=== PATIENT | female | born 1975 | race Caucasian/White ===

== ENCOUNTER 2018-12-17 05:39 | Day surgery (SDC) | payer BC ==
[~2018-12-17 05:39] MED LIST: Buffered Lidocaine 1% SYRIN* 1 ML/SYRINGE INTRADERM ONE
[2018-12-17] MEDS ORDERED: Dexamethasone IV* 4 MG/ML 1 ML (4 MG) IV SLOW PU ONE (06:00)
[2018-12-17] MEDS ORDERED: Famotidine TAB* 20 MG PO ONE (06:00)
[2018-12-17] MEDS ORDERED: Lactated Ringers 1000 ML Bag* 1,000 ML IV SCH (06:00)
[2018-12-17] MEDS ORDERED: ceFAZolin 2 GM in NS PREMIX(*) 2 GM/100 ML BAG IVPB ONE (06:17)
[2018-12-17] MEDS ORDERED: Dexamethasone IV* 4 MG/ML 1 ML (4 MG) ONE (06:17)
[2018-12-17] MEDS ORDERED: Buffered Lidocaine 1% SYRIN* 1 ML/SYRINGE INTRADERM ONE (06:17)
[2018-12-17] MEDS ORDERED: Famotidine TAB* 20 MG ONE (06:17)
[2018-12-17] MEDS ORDERED: EPINEPHRINE 1 MG/ML 1 ML VIAL ONE (06:50)
[2018-12-17] MEDS ORDERED: ROPIVACAINE 5 MG/ML 30 ML BTL (0.5%) ONE (06:50)
[2018-12-17] MEDS ORDERED: methylPREDNISolone ACETATE 80* 80 MG/ML 1 ML VIAL ONE (06:50)
[2018-12-17] MEDS ORDERED: fentaNYL* 50 MCG/ML 5 ML VIAL (250 MCG VIAL) ONE (07:15)
[2018-12-17] MEDS ORDERED: Propofol* 10 MG/ML 20 ML BTL ONE (07:16)
[2018-12-17] MEDS ORDERED: Midazolam* 1 MG/ML 2 ML VIAL (2 MG) ONE (07:16)
[2018-12-17] MEDS ORDERED: Lidocaine 2% PF * 5 ML VIAL ONE (07:16)
[2018-12-17] MEDS ORDERED: Succinylcholine* 20 MG/ML 10 ML VIAL ONE (07:16)
[2018-12-17] MEDS ORDERED: DiMENhydriNATE IV* 50 MG/ML VIAL IV PUSH PRN (07:53)
[2018-12-17] MEDS ORDERED: Acetaminophen TAB* 325 MG PO PRN (07:53)
[2018-12-17] MEDS ORDERED: Naloxone* 0.4 MG/ML 1 ML VIAL IV PRN (07:53)
[2018-12-17] MEDS ORDERED: fentaNYL* 50 MCG/ML 2 ML VIAL (100 MCG VIAL) IV PRN (07:53)
[2018-12-17] MEDS ORDERED: HYDROmorphone INJ1* 1 MG/ML SYRINGE IV PRN (07:53)
[2018-12-17] MEDS ORDERED: oxyCODONE/Acetamin 5/325 MG* TAB PO PRN (07:53)
[2018-12-17] MEDS ORDERED: Ketorolac INJ* 30 MG/ML 1 ML VIAL IV PRN (07:53)
[2018-12-17] MEDS ORDERED: Ondansetron INJ* 2 MG/ML VIAL ONE (08:07)
[2018-12-17] MEDS ORDERED: Levalbuterol HFA INHALER* 1 PUFF MDI ONE (08:41)
[2018-12-17] MEDS ORDERED: Levalbuterol 1.25MG/0.5ML NEB ONE (08:56)
[2018-12-17] MEDS ORDERED: methylPREDNISolone SOD 40 MG* 1 ML VIAL ONE (09:03)
[2018-12-17] MEDS ORDERED: Levalbuterol 1.25MG/0.5ML NEB INH ONE (09:27)
[2018-12-17 10:24] VITALS: BP 117/63
--- NOTE | 2018-12-17 21:35 | OP ---
DATE OF OPERATION: 12/17/18 [facility] DATE OF : 71 ATTENDING SURGEON: Valentine Padilla MD. EDGE CUTTING MACHINE OPERATOR: VIJAYA Milton. Ms. Russell did help throughout the procedure with preparation of the leg, wound retraction, manipulation of the knee, and wound closure. ANESTHESIOLOGIST: Dr. Shah. ANESTHESIA: General. PRE-OP DIAGNOSIS: Left knee medial and lateral meniscal tear, moderate degenerative osteoarthritis. POST-OP DIAGNOSIS: Left knee medial and lateral meniscal tear, severe degenerative osteoarthritis of the patello-femoral and lateral compartments. OPERATIVE PROCEDURE: Left knee arthroscopy with partial medial meniscectomy and partial lateral meniscectomy. COMPLICATIONS: None. ESTIMATED BLOOD LOSS: Less than 45 cc. SPECIMEN: None. BRIEF HISTORY/INDICATION: Ms. Restrepo is a 43-year-old female who was stepping off a chair one month ago and she felt a pop in the back of her knee. She failed conservative treatment and had significant pain. MRI confirmed medial and lateral meniscal tear. Due to continued pain and mechanical symptoms , the patient elected to undergo knee arthroscopy with partial meniscectomy, possible chondroplasty, possible synovectomy. Informed consent was obtained from the patient. She understood the risks of surgery included, but were not limited to, bleeding, infection, damage to nearby structures, continued pain, need for further surgery, retear of the meniscus, nerve palsy, damage to nearby structures, continued progression of arthritis, stroke, heart attack, blood clot , and . She wished to proceed. INTRAOPERATIVE FINDINGS: Intraoperatively, the patient was noted to have grade 3 and 4 Outerbridge cartilage changes in the patellofemoral and lateral compartments. There was exposed subchondral bone and significant cartilage loss. Medial compartment had grade 2 and 3 Outerbridge cartilage changes. The medial meniscus had a radial tear along the body in the red-white zone. The lateral meniscus had a large displaced parrot beak type tear involving the body of posterior horn. This is in the white-red zone. DESCRIPTION OF PROCEDURE: Ms. Restrepo was identified in the preanesthesia unit. Her left lower extremity was marked as the correct operative site. Informed consent was signed and placed in the chart. The patient was taken to the operating room and placed under anesthesia without difficulty. Left lower extremity was prepped and draped in the usual sterile fashion. Preop time-out was made to correctly identify the patient, side, and site. Appropriate perioperative antibiotics were given within 1 hour of incision. A standard lateral 0.5-cm portal incision was made with a 10-blade and carried down to the capsule. Trocar was introduced. As soon as the light and water sources were turned on, there was immediate visualization of the suprapatellar pouch. A tour of the knee joint was performed. Suprapatellar pouch had no obvious abnormalities. Patellofemoral compartment showed exposed subchondral bone along the medial and lateral patellar facet as well as the femoral trochlear groove. These were grade 3 and 4 Outerbridge cartilage changes. The medial compartment showed a radial tear in the body of the medial meniscus. Some grade 2 and 3 Outerbridge cartilage changes. ACL and PCL appeared to be intact. The knee was placed in the [id number] position. Lateral compartment showed a large parrot beak type tear with displacement to the joint space. There were grade 3 and 4 Outerbridge cartilage changes of the lateral compartment with exposed subchondral bone along the lateral femoral condyle and tibial plateau. Lateral gutter and medial gutter showed no loose bodies or plica. Under direct visualization, a medial portal incision was made. A probe was introduced. There were no additional findings noted. Radiofrequency ablation wand and shaver were used to remove some anterior synovitis. Visualization was improved. Shaver and straight biter were used to perform partial medial meniscectomy in the white-red zone. A smooth border of the medial meniscus was obtained. Further probing of the meniscus showed no additional tears to remove. The knee was placed in the [id number] position. There was a large parrot beak type tear displaced into the joint space in the white-red zone. Straight biter and shaver were used to perform partial lateral meniscectomy in the white-red zone. A smooth border of the lateral meniscus was obtained. Radiofrequency ablation wand was used to further smooth the edge of the lateral meniscus. Further probing of the lateral meniscus showed no additional tears. The knee was copiously irrigated with sterile saline. All instruments were removed. Incisions were closed using interrupted 3-0 nylon suture. Intraarticular injection of 80 mg Depo-Medrol and 6 cc of 0.5% ropivacaine was placed in the knee joint. The patient's incisions were covered with Xeroform, 4x4s, and Webril. Rodriguez wrap and cold pack were placed over this. The patient's anesthesia was reversed without difficulty. She was taken to the PACU in stable condition. Intended weightbearing will be weightbearing as tolerated. Intended DVT prophylaxis will be aspirin. She will follow up in 2 weeks' time for suture removal. [id number]/[facility] #: [id number] JIMMY
== END 2018-12-17 10:48 | disposition home or self-care (01) ==
LOC: OR 05:39
PROVIDERS: ATTEND Orthopaedic Surgery Adult Reconstructive Orthopaedic Surgery
DX: S83.242A Other tear of medial meniscus, current injury, left knee, initial encounter (principal); S83.282A Other tear of lateral meniscus, current injury, left knee, initial encounter; X50.0XXA Overexertion from strenuous movement or load, initial encounter; Y92.9 Unspecified place or not applicable; M17.12 Unilateral primary osteoarthritis, left knee; J45.909 Unspecified asthma, uncomplicated; E03.9 Hypothyroidism, unspecified; M19.90 Unspecified osteoarthritis, unspecified site
CPT/HCPCS: 81025; A9270-GY; J0330; J0690; J1040; J1100; J2250; J2405; J2704; J2795; J2920; J3010

== ENCOUNTER 2020-08-25 07:30 | Inpatient (IN) ==
[~2020-08-25 07:30] MED LIST changes: +Buffered Lidocaine 1% SYRIN 1 ml INTRADERM ONE; -Buffered Lidocaine 1% SYRIN* 1 ML/SYRINGE INTRADERM ONE; +Famotidine IV 10 MG/ML 2 ml VIAL (20 mg) IV ONE; +Lactated Ringers 1000 ml BAG 1,000 ML IV SCH
[2020-08-25] MEDS ORDERED: Rocuronium 50 mg VIAL 10 mg/ml 5 ml VIAL (50 mg) ONE ×2 (08:55→09:46)
[2020-08-25] MEDS ORDERED: HYDROmorphone 1 MG/1 ML SYRINGE ONE (08:55)
[2020-08-25] MEDS ORDERED: Ondansetron 4 mg VIAL 2 MG/ML 2 ml VIAL ONE (08:56)
[2020-08-25] MEDS ORDERED: Glycopyrrolate IV 0.2 MG/ML 1 ML VIAL ONE (08:56)
[2020-08-25] MEDS ORDERED: Propofol 10 MG/ML 20 ML BTL ONE ×2 (08:56→10:22)
[2020-08-25] MEDS ORDERED: Lidocaine 2% PF 5 ML VIAL ONE (08:56)
[2020-08-25] MEDS ORDERED: Midazolam 2 mg/2 ml VIAL 1 mg/ml 2 ml VIAL (2 mg) ONE (08:56)
[2020-08-25] MEDS ORDERED: Dexamethasone IV 4 MG/ML VIAL 1 ml VIAL ONE (08:56)
[2020-08-25] MEDS ORDERED: fentaNYL 100 mcg/2 ml 50 MCG/ML VIAL ONE (09:22)
[2020-08-25] MEDS ORDERED: ceFAZolin 1 GM ADVAN 1 GM ADDV.VIAL IVPB ONE (09:23)
[2020-08-25] MEDS ORDERED: Famotidine IV 10 MG/ML 2 ml VIAL (20 mg) ONE (09:23)
[2020-08-25] MEDS ORDERED: Buffered Lidocaine 1% SYRIN 1 ml INTRADERM ONE (09:23)
[2020-08-25] MEDS ORDERED: ceFAZolin 2 GM PREMIX 2 GM/50 ML BAG ONE (09:23)
[2020-08-25] MEDS ORDERED: Heparin 5000 UNITS/ML 1 mL VIAL ONE (09:23)
[2020-08-25] MEDS ORDERED: Methylene Blue 0.5 % 50 MG/10 ML AMP IV ONE (09:43)
[2020-08-25] MEDS ORDERED: EPHEDrine (Pressors) 50 MG/ML VIAL ONE (10:41)
[2020-08-25] MEDS ORDERED: Phenylephrine 40 mcg/mL 10mL (400mcg) SYRINGE ONE (10:42)
[2020-08-25] MEDS ORDERED: Naloxone 0.4 mg VIAL 0.4 mg/ml 1 ml VIAL IV PRN (11:25)
[2020-08-25] MEDS ORDERED: DiMENhydriNATE IV 50 mg/ml 1 ml VIAL IV PUSH PRN (11:25)
[2020-08-25] MEDS ORDERED: Ondansetron 4 mg VIAL 2 MG/ML 2 ml VIAL IV PRN ×2 (11:25→12:51)
[2020-08-25] MEDS ORDERED: fentaNYL 100 mcg/2 ml 50 MCG/ML VIAL IV PRN (11:25)
[2020-08-25] MEDS ORDERED: Levalbuterol 1.25MG/0.5ML NEB.SOL INH PRN (11:25)
[2020-08-25] MEDS ORDERED: Acetaminophen IV 1 GM/100ML 100 ML ONE (11:32)
[2020-08-25] MEDS ORDERED: Levalbuterol HFA INHALER MDI ONE (12:37)
[2020-08-25] MEDS ORDERED: diPHENhydraMINE IV 50 MG/ML 1 ml VIAL (BENADRYL) SLOW PUSH PRN (12:51)
[2020-08-25] MEDS ORDERED: HYDROmorphone 0.5 MG/0.5 ML SYRINGE IV SLOW PU PRN (12:51)
[2020-08-25] MEDS ORDERED: HYDROmorphone 1 MG/1 ML SYRINGE IV SLOW PU PRN (12:51)
[2020-08-25] MEDS ORDERED: Albuterol HFA INHALER 8 gm MDI INH PRN (14:30)
[2020-08-25] MEDS: Heparin 5000 UNITS/ML 1 mL VIAL SUBCUT SCH ×2 (14:48→21:20)
[2020-08-25] MEDS: Lactated Ringers 1000 ml BAG 1,000 ML IV SCH (21:19)
[2020-08-25] MEDS: Famotidine IV 10 MG/ML 2 ml VIAL (20 mg) IV SLOW PU SCH (21:20)
[2020-08-26] MEDS: Heparin 5000 UNITS/ML 1 mL VIAL SUBCUT SCH ×2 (08:07→14:07)
[2020-08-26] MEDS: Famotidine IV 10 MG/ML 2 ml VIAL (20 mg) IV SLOW PU SCH (09:08)
[2020-08-26] MEDS: Lactated Ringers 1000 ml BAG 1,000 ML IV SCH (11:27)
[2020-08-26] MEDS ORDERED: D5W 1/2 NS KCl 20 meq 1000 ml 1,000 ML IV SCH (13:00)
[2020-08-26 15:31] VITALS: BP 135/80
[2020-08-28] MEDS ORDERED: Scopolamine PATCH Remove NOTE PATCH OFF ONE (11:27)
== END 2020-08-26 15:38 | disposition home or self-care (01) | DRG 951 ==
LOC: AA 08:56 → SSU 12:51
PROVIDERS: ADMIT Surgery; ATTEND Surgery